=== PATIENT | female | born 1975 ===

== ENCOUNTER 2017-12-10 13:41 | Emergency (ER) | payer OTHER ==
[2017-12-10 13:42] VITALS: BMI 30.1
[2017-12-10 14:18] VITALS: BP 116/53; PULSE 81; RESP 16; TEMP 98.4; O2SAT 100
--- NOTE | 2017-12-10 15:56 | ED PDOC ---
HPI: Abdomen Time Seen by Provider: 12/10/17 14:59 Chief Complaint (Nursing): Abdominal Pain Chief Complaint (Provider): Abdominal pain History Per: Patient History/Exam Limitations: no limitations Onset/Duration Of Symptoms: Hrs (today) Current Symptoms Are (Timing): Still Present Context: Food Associated Symptoms: Nausea, Vomiting. denies: Fever, Diarrhea Additional Complaint(s): Chelo Mcnair is a 42 year old female, with no significant past medical history, who presents to the emergency department complaining of abdominal pain associated with nausea and vomiting onset since today. Patient presents with her 2 sons who have similar symptoms. She reports they were celebrating her birthday and ate [place] food and pizza. She denies any diarrhea, fever, melena , hematochezia, or recent travels. No further medical complaints. PMD: None provided. Past Medical History Reviewed: Historical Data, Nursing Documentation, Vital Signs Vital Signs: Last Vital Signs Temp 98.4 F 12/10/17 14:15 Pulse 81 12/10/17 14:15 Resp 16 12/10/17 14:15 BP 116/53 L 12/10/17 14:15 Pulse Ox 100 12/10/17 16:15 - Medical History PMH: No Chronic Diseases - Surgical History Surgical History: No Surg Hx - Family History Family History: States: Unknown Family Hx - Social History Current smoker - smoking cessation education provided: No Alcohol: None Drugs: Denies - Immunization History Hx Tetanus Toxoid Vaccination: No Hx Influenza Vaccination: No Hx Pneumococcal Vaccination: No - Home Medications Home Medications: Ambulatory Orders Medication Instructions Recorded Ondansetron ODT [Zofran ODT] 1 odt PO BID PRN #6 odt 01/08/17 Acetaminophen/Butalbital/Caf 1 tab PO Q6 PRN #12 tab 08/25/17 [Fioricet] Dicyclomine [Bentyl] 20 mg PO QID PRN #20 tab 12/10/17 Ondansetron ODT [Zofran ODT] 4 mg PO DAILY PRN #20 odt 12/10/17 - Allergies Allergies/Adverse Reactions: Allergies Allergy/AdvReac Type Severity Reaction Status Date / Time No Known Allergies Allergy Verified 01/07/17 22:55 Review of Systems ROS Statement: Except As Marked, All Systems Reviewed And Found Negative Constitutional: Negative for: Fever Gastrointestinal: Positive for: Nausea, Vomiting, Abdominal Pain. Negative for : Diarrhea, Melena, Hematochezia Physical Exam - Reviewed Nursing Documentation Reviewed: Yes Vital Signs Reviewed: Yes - Physical Exam Comments: GENERAL APPEARANCE: Patient is awake, alert, oriented x 3, in no distress. SKIN: Warm, dry; (-) cyanosis. EYES: (-) conjunctival pallor, (-) scleral icterus. ENMT: Mucous membranes moist. NECK: (-) tenderness, (-) stiffness, (-) lymphadenopathy. CHEST AND RESPIRATORY: (-) rales, (-) rhonchi, (-) wheezes; breath sounds equal bilaterally. HEART AND CARDIOVASCULAR: (-) irregularity; (-) murmur, (-) gallop. ABDOMEN AND GI: (-) distention. Bowel sounds active; (-) tenderness, (-) guarding, (-) rebound, (-) palpable masses, (-) CVA tenderness. EXTREMITIES: (-) deformity, (-) edema, (+) distal pulses. NEURO AND PSYCH: Mental status as above; (-) focal findings. - ECG O2 Sat by Pulse Oximetry: 100 (RA) Pulse Ox Interpretation: Normal Medical Decision Making Medical Decision Making: Initial Impression: Gastroenteritis Initial Plan: --Bentyl 10 mg PO --Pepcid 20 mg PO --Zofran ODT 4 mg PO --reevaluation Based on history and exam, plan will be for outpatient f/u with the clinic, Dx of gastroenteritis d/w the patient. Advised to drink plenty of fluids, BRAT diet , & frequent handwashing. Advised to follow up with outpatient clinic in 1-2 days without fail. Advised to take medication as prescribed. Return to the emergency room at any time for any new or worsening symptoms. Patient states she fully agrees with and understands discharge instructions. States that she agrees with the plan and disposition. Verbalized and repeated discharge instructions and plan. I have given the patient opportunity to ask any additional questions. ~ Scribe Attestation: Documented by Roger Plascencia, acting as a scribe for Gypsy Kaplan PA-C. Provider Scribe Attestation: All medical record entries made by the Scribe were at my direction and personally dictated by me. I have reviewed the chart and agree that the record accurately reflects my personal performance of the history, physical exam, medical decision making, and the department course for this patient. I have also personally directed, reviewed, and agree with the discharge instructions and disposition. Disposition - Clinical Impression Clinical Impression: Abdominal pain, Nausea Counseled Patient/Family Regarding: Diagnosis, Need For Followup, Rx Given - Disposition Referrals: [facility] [Outside] Disposition Time: 15:15 Condition: STABLE Additional Instructions: Thank you for letting us take care of you today. You were treated for abdominal pain, nausea, likely gastroenteritis. The emergency medical care you received today was directed at your acute symptoms. If you were prescribed any medication , please fill it and take as directed. It may take several days for your symptoms to resolve. Return to the Emergency Department if your symptoms worsen , do not improve, or if you have any other problems. Please contact the clinic you have been referred to that are listed on the Patient Visit Information form that is included in your discharge packet. Bring any paperwork you were given at discharge with you along with any medications you are taking to your follow up visit. Our treatment cannot replace ongoing medical care by a primary care provider (PCP) outside of the emergency department. Thank you for allowing the [facility] team to be part of your care today. Prescriptions: Dicyclomine [Bentyl] 20 mg PO QID PRN #20 tab PRN Reason: Other Ondansetron ODT [Zofran ODT] 4 mg PO DAILY PRN #20 odt PRN Reason: Nausea/Vomiting Instructions: Gastroenteritis (ED) Forms: [employer] (Turkish), [facility] ED School/Work Excuse Print Language: AUSTRALIAN
== END 2017-12-10 15:53 | disposition home or self-care (01) ==
LOC: H.ER 13:41
DX: K52.9 Noninfective gastroenteritis and colitis, unspecified (principal)